=== PATIENT | male | born 1965 | race Caucasian/White ===

== ENCOUNTER 2017-10-07 12:42 | Observation (INO) ==
[2017-10-07] MEDS ORDERED: Ondansetron 4 MG/2 ML VIAL IVP ONE (12:47)
[2017-10-07] MEDS ORDERED: 0.9 % Sodium Chloride 1,000 ML IVC ONE ×3 (12:47→15:42)
--- NOTE | 2017-10-07 12:47 | Emergency Department Note ---
Disposition Clinical Impression: Intractable nausea and vomiting, Dehydration, Hypokalemia Disposition: Admitted As Inpatient Condition: Fair Referrals: Brian Monroe MD [Primary Care Provider] - Forms: ED Satisfaction Letter Time of Disposition: 14:52 Nausea/Vomiting/Diarrhea HPI - General Chief complaint: ED Nausea/Vomiting/Diarrhea Stated complaint: Vomitng, diarrhea, sweating for week Time Seen by Provider: 10/07/17 12:47 Source: patient Mode of arrival: ambulatory Limitations: no limitations Nursing Notes Reviewed: Yes Vital Signs Reviewed: Yes - History of Present Illness HPI Narrative: 52-year-old male who presents with 5 days of nausea vomiting diarrhea. He states having abdominal cramping. He feels very lightheaded. This feels like his mouth very dry. States he was in [place] this week visiting a sick family member and discomfort back in [facility] last night. States is not really tried anything for it. Has a history of high blood pressure. Patient states his intake is less because he cannot keep anything down. This been no blood in his vomit there has been no blood in his diarrhea. Patient has a history of having his gallbladder removed Pt Subjective Complaint: nausea, vomiting, diarrhea - Related Data Home Medications Medication Instructions Recorded Confirmed Lisinopril [Zestril] 20 mg PO DAILY 08/01/15 10/07/17 Oxycodone HCl [Oxycodone HCl ER] 20 mg PO Q6-8H PRN 08/01/15 10/07/17 Propranolol [Inderal] 40 mg PO DAILY 08/01/15 10/07/17 hydroCHLOROthiazide 25 mg PO DAILY 08/01/15 10/07/17 [Hydrochlorothiazide] Aspirin/Calcium Carbonate/Mag 650 mg PO DAILY 10/07/17 10/07/17 [Aspirin Buffered 325 mg Tab] Metoclopramide HCl 5 mg PO BID 10/07/17 10/07/17 Montelukast [Singulair] 10 mg PO DAILY 10/07/17 10/07/17 Morphine Sulfate [Isidra] 1 cap PO BID 10/07/17 10/07/17 Omeprazole [PriLOSEC] 40 mg PO DAILY 10/07/17 10/07/17 Venlafaxine [Effexor] 75 mg PO DAILY 10/07/17 10/07/17 Allergies Allergy/AdvReac Type Severity Reaction Status Date / Time No Known Allergies Allergy Verified 07/02/17 17:09 Review of Systems: All other systems are negative except as noted/marked Chart generated with voice recognition software Nursing notes reviewed Old records reviewed Past Medical History - Past Medical History Medical history: Reports: hypertension Surgical history: Reports: cholecystectomy Psychiatric history: Reports: no psych history - Social History Smoking Status: Never smoker Smokeless Tobacco Status: No Alcohol use: Reports: none, occasionally Drug use: Reports: none Physical Exam General: NAD, tachycardic not hypoxic Head: normocephalic, atraumatic Eyes: EOMI, PERRLA mouth: Dry mucous membranes Neck: NO CLA, Supple Chest wall: normal rise, no crepitus, no deformity noted Lungs: moving air well, no distress Heart: Tachycardic and regular Abd: soft, hyperactive bowel sounds no tenderness : deferred MSK: strength equal in all four extremities Ext: moves all four extremities, no obvious deformities Skin: cap refill normal, warm, dry neuro : CN2-12 grossly intact, A&Ox3 Psych: normal affect, not anxious Course Vital Signs Temperature 98.4 F 10/07/17 12:44 Pulse Rate 122 10/07/17 12:44 Respiratory Rate 118 10/07/17 12:44 Blood Pressure 121/77 10/07/17 12:44 O2 Sat by Pulse Oximetry 96 10/07/17 12:44 Temperature 98.4 F 10/07/17 12:44 Pulse Rate 73 10/07/17 15:25 Respiratory Rate 16 10/07/17 15:25 Blood Pressure 107/65 10/07/17 15:25 O2 Sat by Pulse Oximetry 97 10/07/17 15:25 Oxygen Delivery Oxygen Delivery Nasal Cannula Nausea/Vomiting/Diarrhea - [facility] Narrative Medical decision making narrative: 1445 Dr Banks paged for admission 52-year-old male presents today with nausea vomiting and diarrhea for about a week now. He states even after the Zofran and Pepcid he still very nauseated. He was able to tolerate some potassium tablets was states that his nausea is getting worse at this time. Just is pretty low I do think your benefit from coming in the hospital getting hydrated his nausea completely and her control and getting his potassium repleted. I do not think that he would do well at home at this point. I have paged hospitalist for admission. 1500: Dr Banks accepted patient. Patient updated, comfortable with plan. - Medical Records Medical records reviewed: Yes I reviewed the patient's medical records. - Lab Data Lab results reviewed: Yes I reviewed the patient's lab results. Result diagrams: 10/07/17 13:24 10/07/17 13:24 Lab Results 10/07/17 10/07/17 10/07/17 Range/Units 13:20 13:24 13:24 WBC 17.6 H (4.3-11.1) K/mcL RBC 5.58 H (4.19-5.50) M/mcL Hgb 16.3 (12.9-16.9) g/dL Hct 47.1 (37.5-50.1) % MCV 84.4 (83.0-100.0) fL MCH 29.2 (28.0-33.3) pg MCHC 34.6 (31.6-35.5) g/dL RDW 13.6 (11.5-14.5) % Plt Count 404 H (140-400) K/mcL MPV 8.7 L (9.4-12.4) fL Immature Gran % 0.5 (0-4) % Seg Neutrophils % 74.2 % Lymphocytes % 15.7 % Monocytes % 8.4 % Eosinophils % 0.9 % Basophils % 0.3 % Neutrophils # 13.1 H (1.6-8.9) K/mcL Lymphocytes # 2.8 (0.6-4.6) K/mcL Monocytes # 1.5 H (0.0-1.3) K/mcL Eosinophils # 0.2 (0.0-0.6) K/mcL Basophils # 0.1 (0.0-0.2) K/mcL Sodium 136 (136-145) mEq/L Potassium 2.7 L (3.5-5.1) mEq/L Chloride 101 (98-107) mEq/L Carbon Dioxide 22 L (23-29) mEq/L BUN 15 (6-20) mg/dL Creatinine 0.91 (0.70-1.30) mg/dL Est GFR ( Amer) > 60 (> 60) Est GFR (Non-Af Amer) > 60 (> 60) BUN/Creatinine Ratio 16 (6-26) Glucose 133 H (70-105) mg/dL Calculated Osmolality 285 (280-300) Calcium 9.2 (8.6-10.3) mg/dL Total Bilirubin 0.3 (0.3-1.0) mg/dL AST 14 (13-39) Units/L ALT 14 (7-52) Units/L Alkaline Phosphatase 96 (34-104) Units/L Serum Total Protein 7.2 (6.4-8.9) g/dL Albumin 4.0 (3.5-5.7) g/dL Globulin 3.2 (2.4-3.5) g/dL Albumin/Globulin Ratio 1.3 (1.1-2.2) Lipase 14 (11-82) Units/L Urine Color (Yellow) Urine Clarity (Clear) Urine pH (5.0-8.0) pH Units Ur Specific [place] (1.010-1.025) Urine Protein (Neg-Trace) mg/dL Urine Glucose (UA) (Normal) mg/dL Urine Ketones (Negative) mg/dL Urine Blood (Negative) Urine Nitrite (Negative) Urine Bilirubin (Negative) Urine Urobilinogen (Normal) mg/dL Ur Leukocyte Esterase (Negative) Salicylates < 2.5 L (15.0-30.0) mg/dL 10/07/17 Range/Units 15:25 WBC (4.3-11.1) K/mcL RBC (4.19-5.50) M/mcL Hgb (12.9-16.9) g/dL Hct (37.5-50.1) % MCV (83.0-100.0) fL MCH (28.0-33.3) pg MCHC (31.6-35.5) g/dL RDW (11.5-14.5) % Plt Count (140-400) K/mcL MPV (9.4-12.4) fL Immature Gran % (0-4) % Seg Neutrophils % % Lymphocytes % % Monocytes % % Eosinophils % % Basophils % % Neutrophils # (1.6-8.9) K/mcL Lymphocytes # (0.6-4.6) K/mcL Monocytes # (0.0-1.3) K/mcL Eosinophils # (0.0-0.6) K/mcL Basophils # (0.0-0.2) K/mcL Sodium (136-145) mEq/L Potassium (3.5-5.1) mEq/L Chloride (98-107) mEq/L Carbon Dioxide (23-29) mEq/L BUN (6-20) mg/dL Creatinine (0.70-1.30) mg/dL Est GFR ( Amer) (> 60) Est GFR (Non-Af Amer) (> 60) BUN/Creatinine Ratio (6-26) Glucose (70-105) mg/dL Calculated Osmolality (280-300) Calcium (8.6-10.3) mg/dL Total Bilirubin (0.3-1.0) mg/dL AST (13-39) Units/L ALT (7-52) Units/L Alkaline Phosphatase (34-104) Units/L Serum Total Protein (6.4-8.9) g/dL Albumin (3.5-5.7) g/dL Globulin (2.4-3.5) g/dL Albumin/Globulin Ratio (1.1-2.2) Lipase (11-82) Units/L Urine Color Yellow (Yellow) Urine Clarity Clear (Clear) Urine pH 5.0 (5.0-8.0) pH Units Ur Specific [place] 1.010 (1.010-1.025) Urine Protein Negative (Neg-Trace) mg/dL Urine Glucose (UA) Normal (Normal) mg/dL Urine Ketones Trace H (Negative) mg/dL Urine Blood Small H (Negative) Urine Nitrite Negative (Negative) Urine Bilirubin Negative (Negative) Urine Urobilinogen Normal (Normal) mg/dL Ur Leukocyte Esterase Negative (Negative) Salicylates (15.0-30.0) mg/dL - Radiology Data Radiology results reviewed: Yes I reviewed the patient's radiology results. EXAMINATION: CT OF THE ABDOMEN AND PELVIS WITH CONTRAST 10/07/2017 2:25 pm TECHNIQUE: CT of the abdomen and pelvis was performed with the administration of intravenous contrast. Multiplanar reformatted images are provided for review. Dose modulation, iterative reconstruction, and/or weight based adjustment of the mA/kV was utilized to reduce the radiation dose to as low as reasonably achievable. COMPARISON: None. HISTORY: ORDERING SYSTEM PROVIDED HISTORY: abd pain Abdominal pain. Nausea and vomiting. FINDINGS: Lower Chest: Atelectasis in the lower lobes. Organs: Cholecystectomy. Pancreas, liver, and spleen are unremarkable. GI/Bowel: No findings to suggest bowel obstruction. Appendix is normal. Scattered descending colonic diverticula. No evidence of acute diverticulitis. Pelvis: No bladder stone. No pelvic fluid collection. No adenopathy. Peritoneum/Retroperitoneum: No abdominal aortic aneurysm. Adrenal glands are unremarkable. 1.4 x 0.8 cm cyst in the mid to upper right kidney. Left kidney is unremarkable. Bones/Soft Tissues: No acute bony abnormality. D/ / Meeta Lux MD / Meeta Lux MD Interpreting Provider: Meeta Lux MD
[2017-10-07] MEDS ORDERED: ISOVUE-370 100 ML INFUS..BTL IV ONE ×2 (12:59→17:19)
[2017-10-07] MEDS ORDERED: Famotidine 20 MG/2 ML VIAL IVP ONE (12:59)
[2017-10-07 13:31] LABS: Basophils # 0.1 K/mcL (0.0-0.2); Basophils % 0.3 %; Eosinophils # 0.2 K/mcL (0.0-0.6); Eosinophils % 0.9 %; Hematocrit 47.1 % (37.5-50.1); Hemoglobin 16.3 g/dL (12.9-16.9); Immature Granulocytes % 0.5 % (0-4); Lymphocytes # 2.8 K/mcL (0.6-4.6); Lymphocytes % 15.7 %; Mean Corpuscular HGB Conc 34.6 g/dL (31.6-35.5); Mean Corpuscular Hemoglobin 29.2 pg (28.0-33.3); Mean Corpuscular Volume 84.4 fL (83.0-100.0); Mean Platelet Volume 8.7 fL (9.4-12.4); Monocytes # 1.5 K/mcL (0.0-1.3); Monocytes % 8.4 %; Neutrophils # 13.1 K/mcL (1.6-8.9); Platelet Count 404 K/mcL (140-400); Red Blood Count 5.58 M/mcL (4.19-5.50); Red Cell Distribution Width 13.6 % (11.5-14.5); Segmented Neutrophils % 74.2 %
[2017-10-07 13:46] LABS: Alanine Aminotransferase 14 Units/L (7-52); Albumin/Globulin Ratio 1.3 (1.1-2.2); Alkaline Phosphatase 96 Units/L (34-104); Aspartate Amino Transferase 14 Units/L (13-39); BUN/Creatinine Ratio 16 (6-26); Bilirubin,Total 0.3 mg/dL (0.3-1.0); Blood Urea Nitrogen 15 mg/dL (6-20); Calcium 9.2 mg/dL (8.6-10.3); Carbon Dioxide 22 mEq/L (23-29); Chloride 101 mEq/L (98-107); Globulin 3.2 g/dL (2.4-3.5); Glucose 133 mg/dL (70-105); Lipase 14 Units/L (11-82); Osmolality,Calculated 285 (280-300); Potassium 2.7 mEq/L (3.5-5.1); Sodium 136 mEq/L (136-145); Total Protein 7.2 g/dL (6.4-8.9); eGFR For Non-African Americans > 60 (> 60)
[2017-10-07] MEDS ORDERED: *HR* Promethazine 25 MG/ML VIAL IVP ONE (14:51)
[2017-10-07 15:35] LABS: Bilirubin,Urine Negative (Negative); Blood,Urine Small (Negative); Clarity,Urine Clear (Clear); Color,Urine Yellow (Yellow); Glucose,Urine (UA) Normal (Normal); Ketones,Urine Trace mg/dL (Negative); Leukocyte Esterase,Urine Negative (Negative); Nitrite,Urine Negative (Negative); Protein,Urine Negative (Neg-Trace); Urobilinogen,Urine Normal (Normal)
[2017-10-07 15:44] LABS: Granular Casts,Urine Few per lpf (None Seen); Hyaline Casts,Urine Few per lpf (None-Few); Mucus,Urine Few (Few); Red Blood Cell Casts,Urine Few per lpf (None Seen); Squamous Epithelial Cell,Urine Few per lpf (None-Few); WBC,Urine 0-3 per hpf (0-3)
[2017-10-07] MEDS ORDERED: Naloxone 0.4 MG/ML INJ IVP PRN (17:19)
[2017-10-07] MEDS ORDERED: *HR* HYDROcodone/Acet 5/325 mg TABLET PO PRN (17:19)
[2017-10-07] MEDS ORDERED: *HR* OxyCODONE Immed Rel 5 MG TABLET PO PRN (17:19)
[2017-10-07] MEDS ORDERED: Ondansetron 4 MG/2 ML VIAL IVP PRN (17:19)
[2017-10-07] MEDS ORDERED: Acetaminophen 325 MG TABLET PO PRN (17:19)
[2017-10-07] MEDS ORDERED: *HR* Promethazine 25 MG/ML VIAL IVP PRN (17:19)
[2017-10-07] MEDS: 0.9 % Sodium Chloride w KCl 20 MEQ/1,000 ML MLS IVC SCH (17:48)
[2017-10-07] MEDS: *HR* Morphine Sulfate SR (12 HR) 30 MG TABLET.ER PO SCH (21:11)
[2017-10-08] MEDS: 0.9 % Sodium Chloride w KCl 20 MEQ/1,000 ML MLS IVC SCH (04:08)
[2017-10-08 05:58] LABS: Basophils # 0.1 K/mcL (0.0-0.2); Basophils % 0.4 %; Eosinophils # 0.3 K/mcL (0.0-0.6); Hematocrit 39.9 % (37.5-50.1); Hemoglobin 13.6 g/dL (12.9-16.9); Immature Granulocytes % 0.5 % (0-4); Lymphocytes # 3.8 K/mcL (0.6-4.6); Lymphocytes % 26.4 %; Mean Corpuscular HGB Conc 34.1 g/dL (31.6-35.5); Mean Corpuscular Hemoglobin 29.1 pg (28.0-33.3); Mean Corpuscular Volume 85.3 fL (83.0-100.0); Mean Platelet Volume 9.1 fL (9.4-12.4); Monocytes # 1.6 K/mcL (0.0-1.3); Neutrophils # 8.5 K/mcL (1.6-8.9); Platelet Count 324 K/mcL (140-400); Red Blood Count 4.68 M/mcL (4.19-5.50); Red Cell Distribution Width 13.8 % (11.5-14.5); Segmented Neutrophils % 59.7 %
[2017-10-08 06:33] LABS: BUN/Creatinine Ratio 16 (6-26); Blood Urea Nitrogen 11 mg/dL (6-20); Calcium 8.6 mg/dL (8.6-10.3); Carbon Dioxide 24 mEq/L (23-29); Chloride 105 mEq/L (98-107); Glucose 105 mg/dL (70-105); Magnesium 1.6 mg/dL (1.6-2.6); Osmolality,Calculated 288 (280-300); Phosphorous 3.2 mg/dL (2.7-4.5); Potassium 2.7 mEq/L (3.5-5.1); Sodium 139 mEq/L (136-145); eGFR For Non-African Americans > 60 (> 60)
[2017-10-08] MEDS: *HR* Morphine Sulfate SR (12 HR) 30 MG TABLET.ER PO SCH ×2 (08:39→20:51)
[2017-10-08] MEDS ORDERED: Lisinopril 20 MG TABLET PO SCH (09:00)
[2017-10-08] MEDS ORDERED: hydroCHLOROthiazide 25 MG TABLET PO SCH (09:00)
--- NOTE | 2017-10-08 11:00 | Internal Med History&Physical ---
Date of Encounter: 10/08/17 Time of Encounter: 10:20 Assessment and Plan (1) Vomiting and diarrhea Current visit: Yes Status: Acute Possibly acute viral gastroenteritis. He will be given IV fluids. Antiemetics will be given as needed. Recheck labs in a.m. (2) Leukocytosis Current visit: Yes Status: Acute Improved. He reports a previous lab several months/years ago also showed this. Recheck in a.m. Qualifiers: Leukocytosis type: unspecified Qualified Code(s): D72.829 - Elevated white blood cell count, unspecified (3) Hypertension Current visit: Yes Status: Chronic Hold antihypertensive medication because of borderline low blood pressure. Qualifiers: Hypertension type: essential hypertension Qualified Code(s): I10 - Essential (primary) hypertension (4) Hypokalemia Current visit: Yes Status: Acute Unimproved. Will order additional potassium supplementation and recheck labs in a.m. Internal Medicine - H&P: HPI Chief complaint: Vomiting and diarrhea Admitted From: Emergency Dept Plans for Post Hospital Care: Home History of present illness: Mr. Adams is a 52 year old male who came to emergency room complaining of vomiting and diarrhea onset October 02. He denies any hematemesis, melena, or hematochezia. He reports no cough or fever but did feel chills. When he did not improve he came to emergency room and was evaluated and found to have leukocytosis and hypokalemia. He was admitted to [facility] floor for ongoing care needs. He states he feels improved at the present time but not back to his baseline. He reports no family members have similar illnesses. GI history is pertinent for GERD and history of cholecystectomy. 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 Past Med Surg Social Fam HX - Past Medical History Medical history: hypertension Additional medical history: Cardiomegaly. Autoimmune disorder Psychiatric history: no psych history - Past Surgical History Surgical History: cholecystectomy Additional surgical history: Knee surgery. Should - Social History Smoking Status: Never smoker Smokeless Tobacco Status: No Alcohol use: occasionally Drug use: none Internal Medicine - H&P: Meds Lisinopril [Zestril] 20 mg PO DAILY 08/01/15 [History] Oxycodone HCl [Oxycodone HCl ER] 20 mg PO Q6-8H PRN 08/01/15 [History] Propranolol [Inderal] 40 mg PO DAILY 08/01/15 [History] hydroCHLOROthiazide [Hydrochlorothiazide] 25 mg PO DAILY 08/01/15 [History] Aspirin/Calcium Carbonate/Mag [Aspirin Buffered 325 mg Tab] 650 mg PO DAILY 01/14 [History] Metoclopramide HCl 5 mg PO BID 10/07/17 [History] Montelukast [Singulair] 10 mg PO DAILY 10/07/17 [History] Morphine Sulfate [Isidra] 1 cap PO BID 10/07/17 [History] Omeprazole [PriLOSEC] 40 mg PO DAILY 10/07/17 [History] Venlafaxine [Effexor] 75 mg PO DAILY 10/07/17 [History] 3 Allergy/AdvReac Type Severity Reaction Status Date / Time No Known Allergies Allergy Verified 07/02/17 17:09 All Systems PM: A 10-system review of systems was performed and is negative for pertinent findings except as documented above in the HPI. Review of systems: Gen.: He reports his weight has minimally changed in the past few months Cardiovascular: He has history of hypertension. He reports possible [place] at age 22. He does not recall if a heart catheter was done. He denies chest pain on exertion, CHF, DVT or pulmonary embolus Respiratory: He is essentially a lifelong nonsmoker. He has been diagnosed with [place] but CPAP was removed from his home after he was found to be noncompliant in using it. GI: As per history of present illness : Denies hematuria dysuria or kidney stones Neurologic: He denies large distribution strokes or seizures. Endocrine: He denies diabetes thyroid disease or hyperlipidemia Hematology/oncology: Denies blood disorders cancers or anemia Psychiatric: He has anxiety and depression but denies other mental health issues Musk skeletal: He had right total replacement approximately 5 months ago. He has had multiple fractures of his ankles requiring surgical repair. He has had 2 arthroscopies on each knee. He had left shoulder rotator cuff repair. He reports 8 HNP of his spine. He denies gout.. - Constitutional Vitals: Temp Pulse Resp BP Pulse Ox 98.6 F 90 18 109/53 95 10/08/17 06:19 10/08/17 08:39 10/08/17 06:19 10/08/17 06:19 10/08/17 08:41 Exam: Gen.: He is a well-developed obese male lying in bed who appears in no acute distress HEENT: Head is atraumatic and normocephalic. Eyes: EOMI. There is no scleral icterus. Mouth: Mucosa is moist. Neck: He has a large jowl. There is no thyromegaly or adenopathy noted. Heart: Regular without murmurs gallops or ectopics Lungs: No wheezes or crackles are heard. Abdomen: He has a large abdomen. No masses or guarding are noted. Extremities: There is no cyanosis edema or clubbing noted. Dorsalis pedis and posttibial pulses are trace palpable bilaterally. He has well-healed scar on his right anterior knee area. Neurologic: Mental status: He is talkative and a good historian. Cranial nerves : Smile is symmetric. Forehead wrinkles bilaterally. Tongue protrudes midline. EOMI. Motor: There is no pronator drift. Cerebellar: Finger to nose is intact bilaterally. Skin: Warm and dry Internal Med - H&P Results - Labs CBC & Chem 7: 10/08/17 04:45 10/08/17 04:45 Labs: Short CBC 10/08/17 Range/Units 04:45 WBC 14.2 H (4.3-11.1) K/mcL Hgb 13.6 D (12.9-16.9) g/dL Hct 39.9 (37.5-50.1) % Plt Count 324 (140-400) K/mcL Neutrophils # 8.5 (1.6-8.9) K/mcL BMP 10/08/17 04:45 Sodium 139 Potassium 2.7 L Chloride 105 Carbon Dioxide 24 BUN 11 Creatinine 0.69 L Glucose 105 Calcium 8.6
[2017-10-09 05:55] LABS: Basophils # 0.1 K/mcL (0.0-0.2); Basophils % 0.4 %; Eosinophils # 0.4 K/mcL (0.0-0.6); Eosinophils % 2.4 %; Hematocrit 37.8 % (37.5-50.1); Hemoglobin 12.9 g/dL (12.9-16.9); Immature Granulocytes % 0.4 % (0-4); Lymphocytes # 3.4 K/mcL (0.6-4.6); Lymphocytes % 21.4 %; Mean Corpuscular HGB Conc 34.1 g/dL (31.6-35.5); Mean Corpuscular Hemoglobin 29.2 pg (28.0-33.3); Mean Corpuscular Volume 85.5 fL (83.0-100.0); Mean Platelet Volume 8.8 fL (9.4-12.4); Monocytes # 1.5 K/mcL (0.0-1.3); Monocytes % 9.2 %; Neutrophils # 10.6 K/mcL (1.6-8.9); Platelet Count 283 K/mcL (140-400); Red Blood Count 4.42 M/mcL (4.19-5.50); Red Cell Distribution Width 13.9 % (11.5-14.5); Segmented Neutrophils % 66.2 %
[2017-10-09 06:16] LABS: BUN/Creatinine Ratio 13 (6-26); Blood Urea Nitrogen 8 mg/dL (6-20); Calcium 8.6 mg/dL (8.6-10.3); Carbon Dioxide 26 mEq/L (23-29); Chloride 101 mEq/L (98-107); Glucose 92 mg/dL (70-105); Osmolality,Calculated 280 (280-300); Potassium 2.7 mEq/L (3.5-5.1); Sodium 136 mEq/L (136-145); eGFR For Non-African Americans > 60 (> 60)
[2017-10-09] MEDS: *HR* Morphine Sulfate SR (12 HR) 30 MG TABLET.ER PO SCH ×2 (07:56→21:03)
[2017-10-09] MEDS ORDERED: Metoprolol XL (24 HR) Succ 50 MG TAB.ER.24H PO SCH (09:00)
[2017-10-09] MEDS ORDERED: Potassium Chloride 40 MEQ, Lidocaine 1% 2 ML in D5% in Water 500 ML IVPB ONE ×2 (10:04→17:59)
[2017-10-09 16:42] LABS: BUN/Creatinine Ratio 15 (6-26); Blood Urea Nitrogen 10 mg/dL (6-20); Calcium 8.6 mg/dL (8.6-10.3); Carbon Dioxide 24 mEq/L (23-29); Chloride 103 mEq/L (98-107); Glucose 119 mg/dL (70-105); Osmolality,Calculated 284 (280-300); Potassium 3.1 mEq/L (3.5-5.1); Sodium 137 mEq/L (136-145); eGFR For Non-African Americans > 60 (> 60)
--- NOTE | 2017-10-09 18:03 | Internal Med Progress Note ---
Date of Encounter: 10/09/17 Time of Encounter: 17:55 - Assessment and plan (1) Vomiting and diarrhea Current Visit: Yes Status: Acute Assessment and plan: October 09. Improved. Continue present management. Anticipate discharge home tomorrow if stable. (2) Leukocytosis Current Visit: Yes Status: Acute Assessment and plan: October 09. Minimally changed. No left shift present on differential. Recheck in a.m. Qualifiers: Leukocytosis type: unspecified Qualified Code(s): D72.829 - Elevated white blood cell count, unspecified (3) Hypertension Current Visit: Yes Status: Chronic Assessment and plan: October 09. Blood pressure remains satisfactory off medication. Qualifiers: Hypertension type: essential hypertension Qualified Code(s): I10 - Essential (primary) hypertension (4) Hypokalemia Current Visit: Yes Status: Acute Assessment and plan: October 09. Potassium this morning was 2.7. A K rider 40 meq was given with improvement to 3.1. Will repeat K rider and recheck labs in a.m. - Subjective Interval history: October 09. He has no new complaints and feels better. - Constitutional Vitals: Temp Pulse Resp BP Pulse Ox 98.3 F 79 17 107/65 93 10/09/17 11:12 10/09/17 11:12 10/09/17 11:12 10/09/17 11:12 10/09/17 11:12 Exam: He is resting comfortably in bed and appears in no acute distress. His affect is bright and cheerful. I reviewed his medications and lab results. Internal Medicine: Result - Labs CBC & Chem 7: 10/09/17 05:00 10/09/17 16:22 Labs: Short CBC 10/09/17 Range/Units 05:00 WBC 16.0 H (4.3-11.1) K/mcL Hgb 12.9 (12.9-16.9) g/dL Hct 37.8 (37.5-50.1) % Plt Count 283 (140-400) K/mcL Neutrophils # 10.6 H (1.6-8.9) K/mcL BMP 10/09/17 10/09/17 05:00 16:22 Sodium 136 137 Potassium 2.7 L 3.1 L Chloride 101 103 Carbon Dioxide 26 24 BUN 8 10 Creatinine 0.63 L 0.67 L Glucose 92 119 H Calcium 8.6 8.6 Consult Discharge Plan - Plan Referrals: Brian Monroe MD [Primary Care Provider] - 1 week
[2017-10-09] MEDS ORDERED: 0.9 % Sodium Chloride 1,000 ML IVC SCH (18:45)
[2017-10-10 06:41] VITALS: BP 116/69
[2017-10-10 07:54] LABS: Alanine Aminotransferase 12 Units/L (7-52); Albumin 3.2 g/dL (3.5-5.7); Albumin/Globulin Ratio 1.3 (1.1-2.2); Alkaline Phosphatase 62 Units/L (34-104); Aspartate Amino Transferase 11 Units/L (13-39); BUN/Creatinine Ratio 15 (6-26); Bilirubin,Total 0.2 mg/dL (0.3-1.0); Blood Urea Nitrogen 9 mg/dL (6-20); Calcium 8.4 mg/dL (8.6-10.3); Carbon Dioxide 24 mEq/L (23-29); Chloride 106 mEq/L (98-107); Globulin 2.4 g/dL (2.4-3.5); Glucose 98 mg/dL (70-105); Osmolality,Calculated 287 (280-300); Potassium 3.1 mEq/L (3.5-5.1); Sodium 139 mEq/L (136-145); Total Protein 5.6 g/dL (6.4-8.9); eGFR For Non-African Americans > 60 (> 60)
--- NOTE | 2017-10-10 09:40 | Discharge Summary ---
Date of Encounter: 10/10/17 Time of Encounter: 09:30 - Discharge Diagnosis (1) Vomiting and diarrhea Priority: Primary Status: Resolved (2) Leukocytosis Priority: Secondary Status: Acute Qualifiers: Leukocytosis type: unspecified Qualified Code(s): D72.829 - Elevated white blood cell count, unspecified (3) Hypertension Priority: Secondary Status: Chronic Qualifiers: Hypertension type: essential hypertension Qualified Code(s): I10 - Essential (primary) hypertension (4) Hypokalemia Priority: Secondary Status: Acute Hospital course: Mr. Adams is a 52 year old male who came to emergency room complaining of vomiting and diarrhea onset October 02. He denies any hematemesis, melena, or hematochezia. He reports no cough or fever but did feel chills. When he did not improve he came to emergency room and was evaluated and found to have leukocytosis and hypokalemia. He was admitted to [facility] for ongoing care needs. Initial orders were written by the emergency room physician. I saw him on October 08 and performed the history and physical. He was given IV fluids. Antiemetics were given as needed. He had no vomiting after the first hospital day. Diet was advanced and tolerated well. Supplemental potassium was given by IV and oral routes. His potassium had improved to 3.1 by day of discharge. He will remain off HCTZ at discharge. He will continue supplemental potassium at a dose of 20 mEq twice a day for 7 days at discharge. His PCP can recheck labs as needed. Antihypertensive medication was held initially because of borderline hypotension. He was started on Toprol-XL and remained off propanolol. His pressure remained satisfactory on Toprol alone and he will remain off HCTZ and lisinopril at discharge. Leukocytosis persisted during hospitalization. His PCP can monitor this. There was no left shift seen on differential on 10/09/2017. He will be discharged home and follow with his PCP within 1 week. - Time Spent with Patient Total time spent providing and/or coordinating discharge services: - Discharge Medications Prescriptions: Metoprolol XL (24 HR) Succ [Toprol Xl] 50 mg PO DAILY #30 tab.er.24h Potassium Chloride 20 meq PO BIDWM #14 tab.er.prt Home Medications: Oxycodone HCl [Oxycodone HCl ER] 20 mg PO Q6-8H PRN 08/01/15 [History] Aspirin/Calcium Carbonate/Mag [Aspirin Buffered 325 mg Tab] 650 mg PO DAILY 01/14 [History] Metoclopramide HCl 5 mg PO BID 10/07/17 [History] Montelukast [Singulair] 10 mg PO DAILY 10/07/17 [History] Morphine Sulfate [Isidra] 1 cap PO BID 10/07/17 [History] Omeprazole [PriLOSEC] 40 mg PO DAILY 10/07/17 [History] Venlafaxine [Effexor] 75 mg PO DAILY 10/07/17 [History] Metoprolol XL (24 HR) Succ [Toprol Xl] 50 mg PO DAILY #30 tab.er.24h 10/10/17 [ Rx] Potassium Chloride 20 meq PO BIDWM #14 tab.er.prt 10/10/17 [Rx] Allergies/Adverse Reactions: 3 Allergy/AdvReac Type Severity Reaction Status Date / Time No Known Allergies Allergy Verified 07/02/17 17:09 Date of admission: 10/07/17 15:40 - Constitutional Vitals: Temp Pulse Resp BP Pulse Ox 98.4 F 71 15 116/69 95 10/10/17 06:36 10/10/17 06:36 10/10/17 06:36 10/10/17 06:36 10/10/17 06:36 Exam: He is resting comfortably in bed and appears in no acute distress. His affect is bright and cheerful. I reviewed his medications and lab results. - Patient Status Disposition: Home, Self-Care Condition: Fair Overall status at discharge: patient is progressing back to baseline - Discharge Instructions Follow Up With: Brian Monroe MD [Primary Care Provider] - 1 week - Diet and Activity Activity: resume usual activities as tolerated Diet: advance to your usual diet
== END 2017-10-10 10:30 | disposition home or self-care (01) ==
LOC: INPPIK 12:42 → EMEROOPIK 12:42 → INPPIK 16:11
PROVIDERS: ADMIT Internal Medicine; ATTEND Internal Medicine